=== PATIENT | male | born 1960 | race Caucasian/White ===

== ENCOUNTER 2023-12-23 08:38 | Emergency (ER) | payer OTHER, SELFPAY ==
--- NOTE | ~2023-12-23 | CT_ITS ---
CT abdomen pelvis w con Ordering provider: Kathleen Dunham MD History: 63 years Male with . LLQ pain . Comparison: None. Technique: CT abdomen and pelvis with IV and without oral contrast. Automated exposure control and it erative reconstruction technique were employed. The dose-length product was 676.01 mGy-cm. 100 mL Omn ipaque 350 was given IV. Findings: VISUALIZED LOWER CHEST: Dependent atelectatic changes. UPPER ABDOMINAL ORGANS: Liver: A hemangioma is seen in segment #6. Follow-up advised Gallbladder: Normal. Spleen: Normal. Stomach/duodenum: Normal. Pancreas: Normal. Slightly prominent pancreatic duct. Follow-up advised. Adrenals: Tiny adenoma is seen in the body of the left adrenal. No follow-up advised unless clinicall y warranted. Kidneys: Large stone seen in the right renal pelvis measuring 2 cm. Minimal fat stranding seen around the renal pelvis. Stone in the left upper ureter measuring 1 cm. Stone in the left kidney lower pole a cyst seen measuring 1 cm. Tiny stone in the right kidney lower pole. Bilateral hydronephrotic edgar ges are seen. PELVIC ORGANS: The bladder shows thickened wall with underfilling of the bladder. BOWEL AND MESENTERY: Colon: No evidence of diverticulitis. Normal appendix. Small Bowel: Normal. No obstruction. Peritoneum/mesentery: No free air or free fluid. No mesenteric lymphadenopathy. Small lymph nodes are seen in the right lower quadrant measuring 0.8 cm and 1.1 cm. RETROPERITONEUM: Mild atheromatous disease of the abdominal aorta. No retroperitoneal lymphadenopat hy. MUSCULOSKELETAL: Superficial soft tissues: Bilateral fat containing inguinal hernias larger on the left side. Otherwis e, The superficial soft tissues are normal. Bones: Age appropriate degenerative changes of the spine. IMPRESSION: 1. Bilateral kidney stones with bilateral hydronephrotic changes. 2. Highly suggestive meningioma in the liver segment 6. Follow-up advised. 3. Bilateral fat containing inguinal hernias. Reviewed, dictated and finalized at location A.
[2023-12-23 08:47] VITALS: BP 203/107; PULSE 68; RESP 18; TEMP 36.3; O2SAT 97
[2023-12-23 09:08] LABS: Basophils Percent Auto 0.4 % (0.2-1.2); Eosinophils Absolute Auto 0.3 K/mm3 (0-0.3); Eosinophils Percent Auto 2.6 % (0-4.4); Hematocrit 56.1 % (42.0-52.0); Hemoglobin 18.2 g/dL (14.0-18.0); Immature Granulocyte Absolute 0.03 K/mm3 (0.00-0.031); Immature Granulocyte Percent A 0.3 % (0-0.5); Lymphocytes Absolute Auto 1.66 K/mm3 (0.9-3.2); Lymphocytes Percent Auto 17.3 % (18.3-44.2); Mean Corpuscular HGB Conc 32.4 g/dl (32-36); Mean Corpuscular Hemoglobin 26.5 pg (26-34); Mean Corpuscular Volume 81.7 fl (80-100); Mean Platelet Volume 9.9 fl (7.4-10.4); Monocytes Absolute Auto 0.9 K/mm3 (0.1-0.6); Monocytes Percent Auto 9.5 % (2.6-8.5); Neutrophils Absolute Auto 6.7 K/mm3 (1.3-6.7); Neutrophils Percent Auto 69.9 % (45.5-73.1); Platelet Count Result 291 k/mm3 (150-375); Red Blood Count 6.87 M/mm3 (4.6-6.20); Red Cell Distribution Width 15.2 % (11.5-14.5); White Blood Count 9.6 K/mm3 (4.5-10.0)
--- NOTE | 2023-12-23 09:10 | ED.ABDPAIN ---
HPI - Abdominal Pain General Chief Complaint: Abdominal Pain Stated Complaint: abd pain Time Seen by Provider: 12/23/23 08:45 History of Present Illness HPI narrative: Patient states over the last 1-2 days he has had some pain to his left lower abdomen, went to urgent care who sent him to the ER to rule out diverticulitis. He has no nausea or vomiting, fevers or chills. Related Data Allergies Allergy/AdvReac Type Severity Reaction Status Date / Time Penicillins Allergy Unknown Unknown Verified 12/23/23 08:40 Review of Systems Review of Systems: All systems reviewed & are unremarkable except as noted in HPI and below Exam Narrative: EXAMINATION OF ORGAN SYSTEMS/BODY AREAS: Constitutional: Vital signs per nursing GENERAL:[No acute distress, non-toxic appearing.] HEAD: Normal with no signs of head trauma. EYES: EOMI, conjunctiva normal ENT: Hearing grossly intact LUNGS: Nonlabored breathing. HEART: [Regular rate and rhythm] ABD: [Soft], [nontender to palpation] EXT: Normal range of motion SKIN: [No rashes or lesions.] NEURO: [Alert and oriented x 3. No gross focal sensory or strength deficits.] PSYCH: Normal affect Course Vital Signs Vital signs: Vital Signs Temperature 97.4 F L 12/23/23 08:47 Pulse Rate 68 12/23/23 08:47 Respiratory Rate 18 12/23/23 08:47 Blood Pressure 203/107 H 12/23/23 08:47 Pulse Oximetry 97 12/23/23 08:47 Oxygen Delivery Room Air 12/23/23 08:47 Temperature 97.4 F L 12/23/23 08:47 Pulse Rate 63 12/23/23 10:50 Respiratory Rate 17 12/23/23 10:50 Blood Pressure 189/110 H 12/23/23 10:50 Pulse Oximetry 97 12/23/23 10:50 Oxygen Delivery Room Air 12/23/23 08:47 MDM - Abdominal Pain MDM Narrative Medical decision making narrative: ED COURSE AND MEDICAL DECISION MAKIN-year-old male presenting to the emergency department for acute left abdominal/flank pain, symptoms are concerning for likely renal colic, also considerd diverticulitis. Urinalysis is ordered. CT scan of the abdomen/pelvis is ordered. Labs are remarkable for: Her UA with large RBCs, WBCs, elevated creatinine. CT scan of the abdomen/pelvis is reviewed by myself and interpreted by radiology: Bilateral kidney stones with signs of hydronephrosis, and hemangioma. On reevaluation, the patient resting comfortably. No complaints currently I did discuss findings of CT with patient including diagnosis of kidney stones, hemangioma, and likely UTI, for which I will be starting him on antibiotics here. Patient agreeable to this plan with return precautions. Patient is strongly advised to return to the emergency department for any increasing pain not improving with medications, persistent nausea vomiting, fevers or chills or for any other concerns. Patient is comfortable with this plan and was discharged in fair condition. He has follow-up with his primary care doctor in the next 2 weeks, I have let him know that he needs to try to keep hydrated and will need repeat kidney labs to make sure that they have improved. Follow-up to Urology also provided. Lab Data 12/23/23 08:55 12/23/23 08:55 Labs: Lab Results 12/23/23 12/23/23 Range/Units 08:55 09:29 WBC 9.6 (4.5-10.0) K/mm3 RBC 6.87 H (4.6-6.20) M/mm3 Hgb 18.2 H (14.0-18.0) g/dL Hct 56.1 H (42.0-52.0) % MCV 81.7 (80-100) fl MCH 26.5 (26-34) pg MCHC 32.4 (32-36) g/dl RDW 15.2 H (11.5-14.5) % Plt Count 291 (150-375) k/mm3 MPV 9.9 (7.4-10.4) fl Immature Gran % (Auto) 0.3 (0-0.5) % Neut % (Auto) 69.9 (45.5-73.1) % Lymph % (Auto) 17.3 L (18.3-44.2) % Sullivan % (Auto) 9.5 H (2.6-8.5) % Eos % (Auto) 2.6 (0-4.4) % Baso % (Auto) 0.4 (0.2-1.2) % Lymph # (Auto) 1.66 (0.9-3.2) K/mm3 Sullivan # (Auto) 0.9 H (0.1-0.6) K/mm3 Eos # (Auto) 0.3 (0-0.3) K/mm3 Baso # (Auto) 0.0 (0.0-0.1) K/mm3 Abs Immat Gran (auto) 0.03 (0.00-0.031) K/mm3 Abs
[2023-12-23 09:16] LABS: Alanine Aminotransferase 17 U/L (6-50); Albumin Level 4.2 g/dL (3.5-5.1); Alkaline Phosphatase 75 U/L (38-126); Anion Gap 7 mmol/L (4-12); Aspartate Amino Transferase 19 U/L (17-59); Bilirubin,Total 0.8 mg/dL (0.2-1.3); Blood Urea Nitrogen 21 mg/dL (9-20); Calcium 9.9 mg/dL (8.4-10.2); Carbon Dioxide 31 mmol/L (22-30); Chloride 101 mmol/L (98-107); Estimated CRCL calculation 45 ml/min; Estimated Glomerular Filt Rate 41; Glucose 88 mg/dL (65-110); Lipase 229 U/L (23-300); Potassium 4.1 mmol/L (3.4-5.0); Sodium 139 mmol/L (137-145)
[2023-12-23 09:41] LABS: Add Urine Microscopic? YES; Appearance Urine Cloudy (Clear); Bacteria Urine None Seen /hpf; Bilirubin Urine Negative (Negative); Blood Urine 2+ (Negative); Color Urine Yellow (Yellow); Glucose Urine UA Negative (Negative); Ketones Urine Negative (Negative); Leukocyte Esterase Ur 2+ LEU/UL (Negative); Nitrate Urine Negative (Negative); Protein Urine 2+ mg/dL (Negative); RBC Urine 51-100 /hpf (0-2); Specific Grav Ur 1.015 (1.001-1.035); Squamous Epithelial Cell Urine None Seen /hpf (Few); Urobilinogen Urine 0.2 mg/dL (<2.0); WBC Urine 51-100 /hpf (0-3)
[2023-12-23] MEDS: cefTRIAXone 2 GM/NS 100 ML 2 GM/100 ML BAG IVPB (10:46)
[2023-12-23] MEDS: LACTATED RINGERS 1,000 ML 999 ML IV CONT (10:47)
[2023-12-23 10:50] VITALS: BP 189/110; PULSE 63; RESP 17; O2SAT 97
[2023-12-23 11:45] VITALS: BP 193/103; PULSE 69; RESP 16; O2SAT 98
== END 2023-12-23 11:45 | disposition home or self-care (01) ==
PROVIDERS: Emergency Provider Emergency Medicine; PCP Internal Medicine
DX: N17.9 Acute kidney failure, unspecified (principal); N20.0 Calculus of kidney; K40.20 Bilateral inguinal hernia, without obstruction or gangrene, not specified as recurrent; R93.2 Abnormal findings on diagnostic imaging of liver and biliary tract
CPT/HCPCS: 36415; 74177; 80053; 81001; 83690; 85025; 87086; 96365; 99284; J0696; J7120; Q9967

== ENCOUNTER 2024-01-12 09:25 | Outpatient (CLI) | payer OTHER, SELFPAY ==
[2024-01-12 19:12] LABS: Basophils Absolute Auto 0.1 K/mm3 (0.0-0.1); Basophils Percent Auto 0.6 % (0.2-1.2); Eosinophils Absolute Auto 0.2 K/mm3 (0-0.3); Hematocrit 54.7 % (42.0-52.0); Hemoglobin 17.3 g/dL (14.0-18.0); Immature Granulocyte Absolute 0.02 K/mm3 (0.00-0.031); Immature Granulocyte Percent A 0.2 % (0-0.5); Lymphocytes Absolute Auto 1.71 K/mm3 (0.9-3.2); Lymphocytes Percent Auto 19.1 % (18.3-44.2); Mean Corpuscular HGB Conc 31.6 g/dl (32-36); Mean Corpuscular Hemoglobin 26.2 pg (26-34); Mean Corpuscular Volume 82.9 fl (80-100); Mean Platelet Volume 9.9 fl (7.4-10.4); Monocytes Absolute Auto 0.8 K/mm3 (0.1-0.6); Monocytes Percent Auto 8.4 % (2.6-8.5); Neutrophils Absolute Auto 6.2 K/mm3 (1.3-6.7); Neutrophils Percent Auto 69.7 % (45.5-73.1); Platelet Count Result 316 k/mm3 (150-375); Red Cell Distribution Width 15.2 % (11.5-14.5); White Blood Count 8.9 K/mm3 (4.5-10.0)
[2024-01-12 19:27] LABS: Alanine Aminotransferase 22 U/L (6-50); Albumin Level 4.1 g/dL (3.5-5.1); Alkaline Phosphatase 68 U/L (38-126); Anion Gap 8 mmol/L (4-12); Aspartate Amino Transferase 37 U/L (17-59); Bilirubin,Total 0.6 mg/dL (0.2-1.3); Blood Urea Nitrogen 22 mg/dL (9-20); Calcium 8.9 mg/dL (8.4-10.2); Carbon Dioxide 29 mmol/L (22-30); Chloride 100 mmol/L (98-107); Cholesterol 218 mg/dL (0-200); Estimated Glomerular Filt Rate 39; Glucose 68 mg/dL (65-110); HDL Direct 30 mg/dL; Potassium 4.6 mmol/L (3.4-5.0); Sodium 137 mmol/L (137-145); Triglycerides 113 mg/dL (<150)
[2024-01-12 19:38] LABS: LDL Cholesterol Direct 161 mg/dL
[2024-01-12 19:56] LABS: Prostate Specific Antigen 1.5 ng/mL (< OR = 4.0)
== END 2024-01-12 09:26 | disposition home or self-care (01) ==
LOC: ANHGOSHLAB 09:26
PROVIDERS: PCP Internal Medicine; Visit Provider Clinical Nurse Specialist
DX: Z13.228 Encounter for screening for other metabolic disorders (principal); Z13.220 Encounter for screening for lipoid disorders; Z12.5 Encounter for screening for malignant neoplasm of prostate
CPT/HCPCS: 36415; 80053; 80061; 84153; 84443; 85025; G0103

== ENCOUNTER 2024-01-12 09:44 | Outpatient (CLI) | payer OTHER, SELFPAY ==
--- NOTE | ~2024-01-12 | XR_ITS ---
XR abdomen/kub 1V Ordering provider: BARRY Patton History: . N20.0 - Calculus of kidney . Comparison: None. FINDINGS: BOWEL: Nonobstructive bowel gas pattern. ORGANOMEGALY: None. SIGNIFICANT PATHOLOGIC CALCIFICATIONS: Bilateral kidney stones larger on the right side. Stone in the left renal pelvis and upper ureter. OTHER: No free air is seen under the diaphragm. IMPRESSION: NO ACUTE ABDOMINAL FINDINGS. Bilateral kidney stones. Stone in the left upper ureter or renal pelvis. Reviewed, dictated and finalized at location A. RINARY RADIOLOGIST
== END 2024-01-12 09:45 | disposition home or self-care (01) ==
PROVIDERS: PCP Internal Medicine; Visit Provider Clinical Nurse Specialist
DX: N20.0 Calculus of kidney (principal)
CPT/HCPCS: 74018

== ENCOUNTER 2024-01-15 12:46 | Outpatient (CLI) | payer OTHER, SELFPAY ==
--- NOTE | ~2024-01-15 | US_ITS ---
EXAMINATION: US renal BI, US retroperitoneal duplex ltd, US right upper quadrant DATE: 01/15/2024 13:27 INDICATION: Nephrolithiasis and abnormal result of kidney function studies. Abnormal findings on othe r diagnostic imaging with suspected hepatic hemangioma. TECHNIQUE: 1. Multiple ultrasound grayscale and color Doppler images of the right upper quadrant of the abdomen were obtained. 2. Multiple grayscale and color Doppler images of the kidneys were obtained. 3. Multiple grayscale and pulsed Doppler images of the aorta and renal arteries were obtained. COMPARISON: None. FINDINGS: Kidneys: The right kidney measures 10.4 x 5.6 x 5.9 cm. The left kidney measures 1.9 x 5.4 x 6.3 cm. The kidne ys demonstrate normal echogenicity. There is mild bilateral hydronephrosis. There is an echogenic 2 c m stone at the right renal pelvis with posterior twinkle artifact. A smaller stone at the inferior ri ght kidney seen on prior CT is not visualized on the provided images. There is an 8 mm echogenic and shadowing stone at a lower pole calyx of the left kidney. The stone at the left ureteropelvic junctio n seen on prior CT is not identified on the provided images. There is no hydronephrosis in either kid dee. No stones identified. The bladder is normal with ureteral jets visualized on color Doppler. Renal arteries/vascular: The aorta peak systolic velocity is 88 cm/s. The right renal artery peak systolic velocity is 83 cm/s in the proximal segment, 87 cm/s in the mid segment, and 87 cm/s in the distal segment. The left josefina al artery peak systolic velocity is 99 cm/s in the proximal segment, 60 cm/s in the mid segment, and 51 cm/s in the distal segment. Right upper quadrant: The region of the pancreas is obscured by shadowing bowel gas. Liver has normal echogenicity and cont our, with a smooth surface. There is a punctate echogenic calcification at the periphery of a 2.8 x 2 .3 x 1.5 cm region of subtly increased echogenicity at the periphery of the inferior right hepatic lo be which appears to correspond to the hyperenhancing lesion on prior CT which is nonspecific by ultra sound of likely a hemangioma. There is a second subtle 1.2 x 1.1 x 1.1 cm hyperechoic region along th e cephalad aspect the gallbladder fossa which is without correlate on the prior CT with location and appearance most suggestive of focal fat. No intrahepatic biliary duct dilation suspected. Portal veno us flow was seen in the hepatopetal, normal direction and has normal Doppler waveform. 3 mm echogenic and nonshadowing likely gallbladder polyp along the wall of the otherwise normal appearing nondisten ded gallbladder. No evident shadowing cholelithiasis. Common bile duct measures 3 mm diameter which i s normal. Sonographic Guerra sign was reported as negative by the production proofreader. IMPRESSION: 1. Nephrolithiasis with persistent mild bilateral hydronephrosis. 2. No Doppler evidence of renal artery stenosis. 3. A couple indeterminate slightly hyperechoic hepatic lesions one measuring 2.8 cm which corresponds to the hyperenhancing lesion in the right hepatic lobe on prior CT most likely a hemangioma at the s econd measuring 1.2 cm along the gallbladder fossa without correlate on prior CT most likely focal he patic steatosis. Would consider further evaluation with pre and postcontrast MRI for more definitive determination. 4. Likely benign 3 mm gallbladder polyp. Reviewed, dictated and finalized at location B. OUS WALLBOARD INSPECTOR IMPRESSION: 1. Nephrolithiasis with persistent mild bilateral hydronephrosis. 2. No Doppler evidence of renal artery stenosis. 3. A couple indeterminate slightly hyperechoic hepatic lesions one measuring 2. 8 cm which corresponds to the hyperenhancing lesion in the right hepatic lobe o n prior CT most likely a hemangioma at the second measuring 1.2 cm along the ga llbladder fossa without correlate on prior CT most likely focal hepatic steatos is. Would consider further evaluation with pre and postcontrast MRI for more de finitive determination. 4. Likely benign 3 mm gallbladder polyp. IMPRESSION: 1. Nephrolithiasis with persistent mild bilateral hydronephrosis. 2. No Doppler evidence of renal artery stenosis. 3. A couple indeterminate slightly hyperechoic hepatic lesions one measuring 2. 8 cm which corresponds to the hyperenhancing lesion in the right hepatic lobe o n prior CT most likely a hemangioma at the second measuring 1.2 cm along the ga llbladder fossa without correlate on prior CT most likely focal hepatic steatos is. Would consider further evaluation with pre and postcontrast MRI for more de finitive determination. 4. Likely benign 3 mm gallbladder polyp.
== END 2024-01-15 12:47 | disposition home or self-care (01) ==
LOC: GOSHIMG 12:47
PROVIDERS: PCP Internal Medicine; Visit Provider Clinical Nurse Specialist
DX: K76.9 Liver disease, unspecified (principal); R93.89 Abnormal findings on diagnostic imaging of other specified body structures; R94.4 Abnormal results of kidney function studies
CPT/HCPCS: 76705; 76775; 93976

== ENCOUNTER 2024-01-15 13:52 | Outpatient (CLI) | payer OTHER, SELFPAY ==
[2024-01-15 19:27] LABS: Basophils Absolute Auto 0.1 K/mm3 (0.0-0.1); Basophils Percent Auto 0.6 % (0.2-1.2); Eosinophils Absolute Auto 0.2 K/mm3 (0-0.3); Eosinophils Percent Auto 2.2 % (0-4.4); Hematocrit 54.6 % (42.0-52.0); Hemoglobin 17.6 g/dL (14.0-18.0); Immature Granulocyte Absolute 0.05 K/mm3 (0.00-0.031); Immature Granulocyte Percent A 0.5 % (0-0.5); Lymphocytes Absolute Auto 2.27 K/mm3 (0.9-3.2); Lymphocytes Percent Auto 23.5 % (18.3-44.2); Mean Corpuscular HGB Conc 32.2 g/dl (32-36); Mean Corpuscular Hemoglobin 26.2 pg (26-34); Mean Corpuscular Volume 81.1 fl (80-100); Mean Platelet Volume 9.9 fl (7.4-10.4); Monocytes Absolute Auto 0.9 K/mm3 (0.1-0.6); Monocytes Percent Auto 9.1 % (2.6-8.5); Neutrophils Absolute Auto 6.2 K/mm3 (1.3-6.7); Neutrophils Percent Auto 64.1 % (45.5-73.1); Platelet Count Result 336 k/mm3 (150-375); Red Blood Count 6.73 M/mm3 (4.6-6.20); Red Cell Distribution Width 14.8 % (11.5-14.5); White Blood Count 9.7 K/mm3 (4.5-10.0)
[2024-01-15 20:19] LABS: Alanine Aminotransferase 23 U/L (6-50); Albumin Level 4.5 g/dL (3.5-5.1); Alkaline Phosphatase 77 U/L (38-126); Anion Gap 10 mmol/L (4-12); Aspartate Amino Transferase 32 U/L (17-59); Bilirubin,Total 0.6 mg/dL (0.2-1.3); Blood Urea Nitrogen 29 mg/dL (9-20); Calcium 9.5 mg/dL (8.4-10.2); Carbon Dioxide 28 mmol/L (22-30); Chloride 96 mmol/L (98-107); Cholesterol 242 mg/dL (0-200); Estimated Glomerular Filt Rate 39; Glucose 77 mg/dL (65-110); HDL Direct 31 mg/dL; Sodium 134 mmol/L (137-145); Triglycerides 145 mg/dL (<150)
[2024-01-15 20:31] LABS: LDL Cholesterol Direct 184 mg/dL
[2024-01-15 20:47] LABS: Prostate Specific Antigen 1.4 ng/mL (< OR = 4.0)
== END 2024-01-15 13:53 | disposition home or self-care (01) ==
LOC: ANHGOSHLAB 13:54
PROVIDERS: PCP Internal Medicine; Visit Provider Clinical Nurse Specialist
DX: Z12.5 Encounter for screening for malignant neoplasm of prostate (principal); Z13.228 Encounter for screening for other metabolic disorders; R94.4 Abnormal results of kidney function studies; Z13.220 Encounter for screening for lipoid disorders
CPT/HCPCS: 36415; 80053; 80061; 84153; 84443; 85025; G0103

== ENCOUNTER 2024-01-19 08:50 | Outpatient (CLI) | payer OTHER, SELFPAY ==
[2024-01-19 20:00] LABS: Basophils Absolute Auto 0.1 K/mm3 (0.0-0.1); Basophils Percent Auto 0.5 % (0.2-1.2); Eosinophils Absolute Auto 0.1 K/mm3 (0-0.3); Eosinophils Percent Auto 1.5 % (0-4.4); Hematocrit 58.3 % (42.0-52.0); Immature Granulocyte Absolute 0.02 K/mm3 (0.00-0.031); Immature Granulocyte Percent A 0.2 % (0-0.5); Lymphocytes Absolute Auto 1.67 K/mm3 (0.9-3.2); Lymphocytes Percent Auto 18.2 % (18.3-44.2); Mean Corpuscular HGB Conc 32.6 g/dl (32-36); Mean Corpuscular Hemoglobin 26.5 pg (26-34); Mean Corpuscular Volume 81.4 fl (80-100); Mean Platelet Volume 9.7 fl (7.4-10.4); Monocytes Absolute Auto 0.8 K/mm3 (0.1-0.6); Monocytes Percent Auto 8.9 % (2.6-8.5); Neutrophils Absolute Auto 6.5 K/mm3 (1.3-6.7); Neutrophils Percent Auto 70.7 % (45.5-73.1); Platelet Count Result 308 k/mm3 (150-375); Red Blood Count 7.16 M/mm3 (4.6-6.20); Red Cell Distribution Width 15.6 % (11.5-14.5); White Blood Count 9.2 K/mm3 (4.5-10.0)
[2024-01-19 20:30] LABS: Add Urine Microscopic? YES; Appearance Urine Cloudy (Clear); Bacteria Urine None Seen /hpf; Bilirubin Urine Negative (Negative); Blood Urine 2+ (Negative); Color Urine Yellow (Yellow); Glucose Urine UA Negative (Negative); Hyaline Casts Urine Present /lpf; Ketones Urine Negative (Negative); Leukocyte Esterase Ur 2+ LEU/UL (Negative); Nitrate Urine Negative (Negative); Protein Urine 2+ mg/dL (Negative); Specific Grav Ur 1.019 (1.001-1.035); Squamous Epithelial Cell Urine None Seen /hpf (Few); Urobilinogen Urine 0.2 mg/dL (<2.0); WBC Urine 21-50 /hpf (0-3)
[2024-01-19 20:40] LABS: Anion Gap 10 mmol/L (4-12); Blood Urea Nitrogen 25 mg/dL (9-20); Calcium 9.9 mg/dL (8.4-10.2); Carbon Dioxide 31 mmol/L (22-30); Chloride 97 mmol/L (98-107); Erythrocyte Sedimentation Rate 1 mm/hr (0-20); Estimated Glomerular Filt Rate 41; Glucose 70 mg/dL (65-110); Potassium 4.4 mmol/L (3.4-5.0); Sodium 138 mmol/L (137-145)
[2024-01-19 21:33] LABS: Creatinine Urine 217.2 mg/dL
[2024-01-19 21:59] LABS: MALB Creatinine Ratio 233.7 mg/g (0-30); Microalbumin Urine Random 507.5 mg/L (0-16.7)
[2024-01-19 23:32] LABS: Hepatitis B Surface Antigen Negative (Negative)
[2024-01-19 23:49] LABS: Hepatitis C Virus Antibody Negative (Negative)
[2024-01-20 09:58] LABS: Protein, Total 7.6 g/dL (6.1-8.1)
[2024-01-20 14:42] LABS: Creatinine, Random Urine 209 mg/dL (20-320); Total Prot/Creat ratio mg/mg 0.512 (0.025-0.148); Total Protein/Creatinine Ratio 512 mg/g creat (25-148)
[2024-01-20 15:38] LABS: Albumin 4.6 g/dL (3.8-4.8); Alpha 1 Globulin 0.4 g/dL (0.2-0.3); Alpha 2 Globulin 0.7 g/dL (0.5-0.9); Beta 1 Globulin 0.4 g/dL (0.4-0.6)
== END 2024-01-19 08:51 | disposition home or self-care (01) ==
LOC: ANHGOSHLAB 08:52
PROVIDERS: PCP Internal Medicine; Visit Provider Internal Medicine
DX: N20.0 Calculus of kidney (principal); N17.9 Acute kidney failure, unspecified; I10 Essential (primary) hypertension
CPT/HCPCS: 36415; 80048; 81001; 82043; 82570; 84155; 84156; 84165; 84166; 85025; 85652; 86038; 86039; 86803; 87086; 87340

== ENCOUNTER 2024-02-02 09:10 | Outpatient (CLI) | payer OTHER, SELFPAY ==
--- NOTE | ~2024-02-02 | XR_ITS ---
XR abdomen/kub 1V 02/02/2024 09:35 Indication: Renal stones Procedure: KUB Comparison: CT dated 12/23/2023 and KUB dated 01/12/2024 Findings: There are bilateral renal stones, largest overlying the expected location the right renal p tuan measuring up to 2 cm. There is a stone in the expected location of the left UPJ measuring 1 cm craniocaudal. Bowel gas pattern nonobstructive. No acute osseous abnormality. Mild levocurvature of t he thoracolumbar spine. Mild lower thoracic and lumbar spondylosis. Impression: 1: Stable position to bilateral nephrolithiasis allowing for differences of technique. Reviewed, dictated and finalized at location B. ROOM ATTENDANT Impression: 1: Stable position to bilateral nephrolithiasis allowing for differences of cyndie hnique.
== END 2024-02-02 09:11 | disposition home or self-care (01) ==
PROVIDERS: PCP Internal Medicine; Visit Provider Urology
DX: N20.0 Calculus of kidney (principal)
CPT/HCPCS: 74018

== ENCOUNTER 2024-02-03 02:22 | Day surgery (SDC) | payer OTHER, SELFPAY ==
[2024-02-02 11:23] VITALS: BMI 24.3
--- NOTE | 2024-02-02 11:24 | PC.NURSE ---
Report to the Outpatient Waiting Room, entrance under the green pavilion located off [facility], at time _0915_ on date _[id number]_. Planned Procedure Time: _1115_.? Time changes happen often and if your time is changed the preop area will call you the afternoon before. - You and your visitor will be asked to self-screen and do not enter if you have any COVID symptoms. Please call surgeon if you need to reschedule. - A mask is optional within the hospital at this time. Patients may have clear liquids (water, carbonated beverages, clear teas, apple juice) until 3 hours prior to surgery with a maximum of 20 ounces. - No food from midnight until time of surgery and no smoking. This includes no chewing gum, candy or mints. Take only the following medications with a SIP of water on the morning of surgery: __Amlodipine DO NOT STOP ANY OF YOUR OTHER PRESCRIPTION MEDICATIONS PRIOR TO SURGERY EXCEPT THE FOLLOWING Medications to discontinue per physician ___None Please no make-up, nail nauruan, hairspray, perfume, deodorant, or body powder the day of surgery.? No jewelry (including any body piercings) or valuables the day of surgery, leave them at home.? Please take a shower or bath the night before, or the morning of, surgery with an antibacterial soap.? Wear comfortable, loose fitting clothing.? - Jewelry must be removed prior to entering the operating room.? Rings and piercings that are not removed may be cut off. - The hospital will not accept responsibility for valuables.? - Please leave all valuables, including medications, at home the day of surgery. If you are going home after surgery, a licensed entry level truck driver must drive you home.? - NO public transportation without another adult if you receive anesthesia. - We recommend that an adult stay with you for 24 hours following discharge. - We also recommend that you do not drive, make important decision, drink alcoholic beverages, or take any drugs that were not prescribed by your health care provider for at least 24 hours after your discharge time. Follow any additional instructions given to you from your surgeon. Telephone instructions given to __Morgan__and asked if any additional questions and then verbalized understanding. Patient advised to call surgeon office or pre surgery nurse liaison [phone] if any additional questions.
[2024-02-03] VITALS (7 sets, daily range): BP systolic 122–153; BP diastolic 71–93; PULSE 71–90; RESP 13–20; TEMP 36.1–36.3; O2SAT 96–100; BMI 25.0
--- NOTE | ~2024-02-03 | XR_ITS ---
EXAMINATION: XR retrograde pyelo w/stent BI DATE: 02/03/2024 11:59 INDICATION: Calcium kidney stone. TECHNIQUE: 6 intraoperative fluoroscopic views of the abdomen and pelvis were obtained. I was not pre sent. Fluoroscopy exposure time was 49 seconds. COMPARISON: CT abdomen and pelvis 02/02/2024 FINDINGS: The corrosion control specialist images demonstrate a stone in right renal pelvis, a stone in left kidney, and a s tone in proximal left ureter. Bilateral retrograde pyelograms demonstrate mild bilateral hydronephros is. The final images demonstrate bilateral internal ureteral stents in expected positions. IMPRESSION: 1. Stones in the right renal pelvis, left kidney, and proximal left ureter. 2. Mild bilateral hydronephrosis. 3. Bilateral internal ureteral stents in expected positions. Reviewed, dictated and finalized at location A. ENGINEERING SUPERINTENDENT
--- NOTE | 2024-02-03 09:16 | WPDHPUPDATE1 ---
History and Physical Update Update Date/Time: 02/03/24 09:16 History and Physical has been reviewed, including an updated exam of the patient. There are NO changes in the patient's condition. Risks, benefits, and alternatives have been discussed and questions answered. Patient agrees to proceed with procedure.
--- NOTE | 2024-02-03 10:27 | WPDANESEPPF ---
Anes - Initial Pre Proc Eval Procedure: Operation Date: 02/03/24 11:15 Proposed Procedures p Cystoscopy, Bilateral Retrograde Pyelogram, Bilateral Stent Placement, Possible Left Ureteroscopy, Possible Left Stone Extraction, Possible Holmium Laser - Tashi Castro MD Date/Time: 02/03/24 10:27 Surgeon: Tasih Castro MD Pre Op Diagnosis: kidney stones Patient Data Age: 63 Gender: M Height: 1.85 m Weight: 86.1 kg Last Vital Signs Temp 36.3 C L 02/03/24 09:20 Pulse 71 02/03/24 09:20 Resp 18 02/03/24 09:20 BP 138/72 02/03/24 09:20 Pulse Ox 100 02/03/24 09:20 O2 Del Method Room Air 02/03/24 09:20 Allergies Allergy/AdvReac Type Severity Reaction Status Date / Time Penicillins Allergy Unknown Unknown Verified 02/03/24 10:22 Home Medications Medication Instructions Recorded Confirmed Type tamsulosin 0.4 mg capsule (Flomax) 0.4 mg PO QHS #30 caps 01/12/24 02/02/24 Rx clonidine HCl 0.1 mg tablet 0.1 mg PO ONCE PRN hypertensive 01/13/24 02/02/24 Rx emergency #20 tabs amlodipine 10 mg tablet 10 mg PO DAILY #90 tabs 01/26/24 02/03/24 Rx hydrochlorothiazide 25 mg tablet 25 mg PO DAILY #90 tabs 01/26/24 02/02/24 Rx Patient hx anesthesia problems: none Family hx anesthesia problems: none Results Review: All pre-operative results and documents have been reviewed as part of the pre-operative evaluation. FOR[facility]LY [facility] Past Medical History Medical History Kidney stones Family History Family History Father Lung cancer Sibling Colon cancer Grandparent Cerebrovascular accident Social History Social History (Updated 01/19/24 @ 08:08 by Beatrice Mcintosh CMA) Social History: caffeine use- daily Years smoked: 40 Smoking status: Former smoker Smoking end date: 01/02/24 Alcohol intake: current Drinks per week: 6 Substance use: current Substance use type: marijuana Last use: occasionally Do You Feel Safe in your Home?: Yes Lack of Transportation: No Lack of Food: Never True Concerned About Future Housing: No Difficulty Paying Gas/Electric Bills: No Difficulty Paying for Meds: No Currently Unemployed: No Education: Master's Degree or Higher Difficulty w/ Childcare or Family Care: No Living arrangements: with family Occupation/Education: occupation Gender identity (if verbalized by the patient): Male Spiritual care concerns: No Anes - Eval Final PreProcedure Day of Procedure 02/03/24 10:27 Patient weight: normal Heart: regular rate and rhythm Lungs: clear to auscultation and normal air movement Airway: Mallampati scale class II Neurological: alert and oriented Last oral intake: >/= 8 hours ASA classification: II Emergent: no Anesthetic plan: proceed Anesthesia type and monitoring: general LMA and standard monitoring Results Review: All pre-operative results and documents have been reviewed as part of the pre-operative evaluation. Informed Consent: The patient's anesthetic plan and its attendant risks and benefits were discussed with the patient/family/POA. Questions were solicited and answers provided to the satisfaction of the patient/family/POA.
[2024-02-03] MEDS: ceFAZolin 2 GM/D5W 50 ML 2 GM/50 ML BAG IVPB (10:54)
[2024-02-03] MEDS: LIDOCAINE HCL 2% GEL UROJET 10 ML PKG MUCOUS MEM (11:18)
--- NOTE | 2024-02-03 11:56 | P.OP_ITS ---
Procedure Note - Detailed Date of Procedure 02/03/24 Pre-op Diagnosis Bilateral renal and left ureteral calculi Post-op Diagnosis Same Procedure Performed Cystoscopy, bilateral retrogrades, left ureteroscopy with holmium laser, bilateral ureteral stent placement Surgeon Tashi Castro MD Anesthesia General Findings 1 cm x 5 mm left proximal stone, 1 cm left lower pole stone, 2 cm right renal pelvic stone Description of Procedure Patient was taken to the operative suite correctly identified. Once anesthesia was obtained was placed in dorsal lithotomy position and prepped and draped usual sterile fashion. Twenty-two Togolese scope was inserted in bladder under direct vision. He has a slight median lobe. No tumors noted. The right ureteral orifice was cannulated with a ureteral catheter and a pyelogram was performed. Contrast made its way up into the kidney. Sensor wire was placed in a 4.8 Togolese contour stent was then placed with the proximal end coiled in the renal pelvis and the distal in the bladder. Attention was then given left side. Guidewire was inserted all the way up to the kidney. The orifice was dilated with an 8/10 dilator. Ureteral access sheath was then inserted without difficulty. Mini flexible ureteral scope was placed. Proximal stone had been pushed into the kidney. Using a 200 micron fiber I lasered and dusted the stone. Pieces were too small to retrieve. The left lower pole stone was then seen. It was in the difficult calyx to get to. I was able to fragment at least 90% of the stone. Small little piece is lodged in the calices which was difficult to manipulate the scope to get to. At this point we terminated procedure. Pyelogram was then performed to confirm placement of the stent. 4.8 Togolese contour stent was placed with the proximal end in the renal pelvis and the distal in the bladder. Bladder was drained. 2% viscous lidocaine was inserted into the urethra. That little fragment is clinically insignificant at this time. We will plan on doing a another ureteroscopy on the right side using the CVAC ureteral scope given its size of 2 cm. Will plan on scheduling that in a week or 2. Will plan on removal of the left stent at that. This completes dictation. Please send a copy of op note to my office. Estimated Blood Loss 0 Drains Yes Packing No Pathology None sent Complications No immediate complications Condition Stable Disposition PACU
[2024-02-03] MEDS: LACTATED RINGERS 1,000 ML 30 ML IV CONT ×2 (12:00)
[2024-02-03] MEDS: ONDANSETRON INJ 4 MG/2 ML VIAL IV PUSH (13:00)
== END 2024-02-03 13:34 | disposition home or self-care (01) ==
PROVIDERS: PCP Internal Medicine; Visit Provider Urology
PROC: (CPT 52352; principal; 2024-02-03 11:15)
DX: N20.2 Calculus of kidney with calculus of ureter (principal); F12.90 Cannabis use, unspecified, uncomplicated; Z98.890 Other specified postprocedural states; Z87.891 Personal history of nicotine dependence; Z80.0 Family history of malignant neoplasm of digestive organs; Z80.1 Family history of malignant neoplasm of trachea, bronchus and lung; Z82.49 Family history of ischemic heart disease and other diseases of the circulatory system
CPT/HCPCS: 52356; 74420; C1758; C1769; C2617; J0690; J1100; J2371; J2405; J2704; J7120; Q9966

== ENCOUNTER 2024-02-10 13:36 | Outpatient (CLI) | payer OTHER, SELFPAY ==
--- NOTE | ~2024-02-10 | MR_ITS ---
MRI of the abdomen: Clinical indication: Liver disease. Technique: Coronal SSFSE ARC, WATER:coronal LAVA-FLEX, Coronal 2D FIESTA FatSat, Axial SSFSE BH ARC, Axial 3D DualEcho BH, Axial SSFSE-IR, Axial DWI b=500, Axial 2D FIESTA FatSat, pre and dynamic postco ntrast Axial LAVA ARC, postcontrast Coronal In and Opposed phase LAVA FLEX . Following intravenous ad ministration of 17 cc MultiHance gadolinium, T1-weighted fat-sat imaging was performed in the axial a nd coronal planes. Findings: Gallbladder unremarkable. The common bile duct is normal in course and caliber. No filling defects are seen within the CBD. No evidence of intrahepatic biliary ductal dilatation. The pancreati c duct is normal in size. There is a 2.2 cm T2 hyperintense mass in the inferior right hepatic lobe which demonstrates irregula r peripheral contrast enhancement with progressive fill in and persistent enhancement over time, most compatible with hemangioma. No other hepatic lesion identified. Spleen, pancreas, adrenals, kidneys appear normal. The aorta and the paraaortic regions appear normal . Impression: 2.2 cm inferior right hepatic lobe hemangioma. No other hepatic abnormality identified. Reviewed, dictated and finalized at location . PATIAL INFORMATION TECHNOLOGIST Impression: 2.2 cm inferior right hepatic lobe hemangioma. No other hepatic abnormality darrin ntified.
== END 2024-02-10 13:37 | disposition home or self-care (01) ==
LOC: MICIMG 13:36
PROVIDERS: PCP Internal Medicine; Visit Provider Clinical Nurse Specialist
DX: K76.9 Liver disease, unspecified (principal)
CPT/HCPCS: 74183; A9577

== ENCOUNTER 2024-02-17 01:49 | Day surgery (SDC) | payer OTHER, SELFPAY ==
[2024-02-10 08:25] VITALS: BMI 24.4
--- NOTE | 2024-02-10 08:29 | PC.NURSE ---
Report to the Outpatient Waiting Room, entrance under the green pavilion located off [facility], at time _0800_ on date _[id number]_. Planned Procedure Time: _1000_.? Time changes happen often and if your time is changed the preop area will call you the afternoon before. - You and your visitor will be asked to self-screen and do not enter if you have any COVID symptoms. Please call surgeon if you need to reschedule. - A mask is optional within the hospital at this time. Patients may have clear liquids (water, carbonated beverages, clear teas, apple juice) until 3 hours prior to surgery with a maximum of 20 ounces. - No food from midnight until time of surgery and no smoking. This includes no chewing gum, candy or mints. Take only the following medications with a SIP of water on the morning of surgery: ____Amlodipine DO NOT STOP ANY OF YOUR OTHER PRESCRIPTION MEDICATIONS PRIOR TO SURGERY EXCEPT THE FOLLOWING Medications to discontinue per physician Probiotic Date to take last ugbh___[id number]___ Please no make-up, nail icelandic, hairspray, perfume, deodorant, or body powder the day of surgery.? No jewelry (including any body piercings) or valuables the day of surgery, leave them at home.? Please take a shower or bath the night before, or the morning of, surgery with an antibacterial soap.? Wear comfortable, loose fitting clothing.? - Jewelry must be removed prior to entering the operating room.? Rings and piercings that are not removed may be cut off. - The hospital will not accept responsibility for valuables.? - Please leave all valuables, including medications, at home the day of surgery. If you are going home after surgery, a licensed delivery truck driver must drive you home.? - NO public transportation without another adult if you receive anesthesia. - We recommend that an adult stay with you for 24 hours following discharge. - We also recommend that you do not drive, make important decision, drink alcoholic beverages, or take any drugs that were not prescribed by your health care provider for at least 24 hours after your discharge time. Follow any additional instructions given to you from your surgeon. Telephone instructions given to __Morgan__and asked if any additional questions and then verbalized understanding. Patient advised to call surgeon office or pre surgery nurse liaison [phone] if any additional questions.
[2024-02-17] VITALS (9 sets, daily range): BP systolic 133–156; BP diastolic 68–83; PULSE 56–79; RESP 10–18; TEMP 36.1; O2SAT 99–100
--- NOTE | ~2024-02-17 | XR_ITS ---
EXAMINATION: XR retrograde pyelo w/stent BI DATE: 02/17/2024 11:54 INDICATION: Internal ureteral stent placement TECHNIQUE: Fluoroscopic images from a bilateral ureteral stent placement are submitted for review. 50 seconds of fluoroscopy of fluoroscopy time. FINDINGS: There is a bilateral double-J internal ureteral stent projecting in expected position, with proximal [place] loop at the level of the renal pelvis and distal loop in the pelvis within the bladder lumen. IMPRESSION: 1. Bilateral internal ureteral stent placement. Please refer to real-time procedural findings for d etails. Reviewed, dictated and finalized at location B. WINDER IMPRESSION: 1. Bilateral internal ureteral stent placement. Please refer to real-time pro cedural findings for details.
--- NOTE | ~2024-02-17 | XR_ITS ---
XR abdomen/kub 1V Ordering provider: Tashi Castro MD History: . renal stones . Comparison: None. FINDINGS: BOWEL: Nonobstructive bowel gas pattern. ORGANOMEGALY: None. SIGNIFICANT PATHOLOGIC CALCIFICATIONS: Bilateral double-J stent are noted. Bilateral kidney calcifica tions are seen suggestive of stones. OTHER: No free air is seen under the diaphragm. IMPRESSION: NO ACUTE ABDOMINAL FINDINGS. Bilateral kidney stones with bilateral double-J stents. Reviewed, dictated and finalized at location A. N RESOURCES REPRESENTATIVE
[2024-02-17] MEDS: LACTATED RINGERS 1,000 ML 30 ML IV CONT ×2 (08:30→11:45)
--- NOTE | 2024-02-17 09:05 | WPDHPUPDATE1 ---
History and Physical Update Update Date/Time: 02/17/24 09:05 History and Physical has been reviewed, including an updated exam of the patient. There are NO changes in the patient's condition. Risks, benefits, and alternatives have been discussed and questions answered. Patient agrees to proceed with procedure. Will proceed with cystoscopy, bilateral ureteroscopy with stone extraction bilateral stent exchange
--- NOTE | 2024-02-17 09:19 | P.PNAN_ITS ---
Anes - Initial Pre Proc Eval Procedure: Operation Date: 02/17/24 10:00 Proposed Procedures p Cystoscopy, Right Ureteroscopy, Right Laser Lithotripsy, Right Stone Extraction, Right Stent Exchange, Left Stent Removal - Tashi Castro MD Date/Time: 02/17/24 09:19 Surgeon: Tashi Castro MD Pre Op Diagnosis: right renal calculus Patient Data Age: 63 Gender: M Height: 1.85 m Weight: 84 kg Allergies Allergy/AdvReac Type Severity Reaction Status Date / Time Penicillins Allergy Unknown Unknown Verified 02/10/24 08:22 Home Medications ?Medication ?Instructions ?Recorded ?Confirmed ?Type tamsulosin 0.4 mg capsule (Flomax) 0.4 mg PO QHS #30 caps 01/12/24 02/10/24 Rx clonidine HCl 0.1 mg tablet 0.1 mg PO ONCE PRN hypertensive 01/13/24 02/10/24 Rx emergency #20 tabs amlodipine 10 mg tablet 10 mg PO DAILY #90 tabs 01/26/24 02/10/24 Rx oxybutynin chloride 5 mg tablet 5 mg PO BID PRN bladder spasms #30 02/03/24 02/10/24 Rx tabs tramadol 50 mg tablet 50 mg PO Q6H PRN pain #20 tabs 02/03/24 02/10/24 Rx L.acidophilus,rhamnosus-B.breve-S.thermophilus 1 tablet PO DAILY 02/10/24 02/10/24 History 3 billion cell chew tab Patient hx anesthesia problems: none Family hx anesthesia problems: none Results Review: All pre-operative results and documents have been reviewed as part of the pre- operative evaluation. [facility] Past Medical History Medical History Kidney stones Family History Family History Father Lung cancer Sibling Colon cancer Grandparent Cerebrovascular accident Social History Social History Social History: caffeine use- daily Years smoked: 40 Smoking status: Former smoker Smoking end date: 01/02/24 Alcohol intake: current Drinks per week: 6 Substance use: current Substance use type: marijuana Last use: occasionally Do You Feel Safe in your Home?: Yes Lack of Transportation: No Lack of Food: Never True Concerned About Future Housing: No Difficulty Paying Gas/Electric Bills: No Difficulty Paying for Meds: No Currently Unemployed: No Education: Master's Degree or Higher Difficulty w/ Childcare or Family Care: No Living arrangements: with family Occupation/Education: occupation Gender identity (if verbalized by the patient): Male Spiritual care concerns: No Anes - Eval Final PreProcedure Day of Procedure 02/17/24 09:19 Patient weight: normal Heart: regular rate and rhythm Lungs: decreased breath sounds Airway: Mallampati scale class II Neurological: alert and oriented Last oral intake: >/= 8 hours ASA classification: III Emergent: no Anesthetic plan: proceed Anesthesia type and monitoring: general LMA and standard monitoring Results Review: All pre-operative results and documents have been reviewed as part of the pre- operative evaluation. Informed Consent: The patient's anesthetic plan and its attendant risks and benefits were discussed with the patient/family/POA. Questions were solicited and answers provided to the satisfaction of the patient/family/POA.
[2024-02-17] MEDS: ceFAZolin 2 GM/D5W 50 ML 2 GM/50 ML BAG IVPB (09:35)
[2024-02-17] MEDS: LIDOCAINE 2% GEL UROJET 10 ML PKG MUCOUS MEM (11:37)
--- NOTE | 2024-02-17 11:44 | W.PM.PROC2 ---
Procedure Note - Detailed Date of Procedure 02/17/24 Pre-op Diagnosis Bilateral renal calculi with bilateral stents Post-op Diagnosis Same Procedure Performed Cystoscopy, bilateral retrogrades, bilateral ureteroscopy with laser using CVAC, bilateral stent exchange Surgeon Tashi Castro MD Anesthesia General Description of Procedure Patient was taken to the operative suite correctly identified. Once anesthesia was obtained he was placed in dorsal lithotomy position prepped draped usual sterile fashion 22 Bulgarian scope was inserted the bladder. The prior left stent was grasped brought out the meatus. Wire was placed through it. Mini flexible ureteroscope was inserted up to the kidney. Some stone fragments were noted in the lower pole. Using a 200 micron fiber we dusted the stones further. These then appeared to flush out. Pyelogram was then performed in a 4.8 Bulgarian contour stent was placed. Attention was then given to the right side. The right stent was grasped with another wire passed through it. A 2nd Sensor wire was placed. A ureteral access sheath was inserted. CVAC ureteroscope was placed. 2 cm stone was noted in the renal pelvis. Using a 200 micron fiber we dusted the stone. Using the continuous VAC ureteral scope we aspirated all the visible fragments. He had thus stone in the lower pole. We attempted to dust this but is very difficult to angle it into that calyx. At this point the majority of the stone burden was gone. Pyelogram was performed. 4.8 Bulgarian contour stent was placed with the proximal end coiled in the renal pelvis the bladder. 2% viscous lidocaine was inserted into the urethra patient is taken recovery stable condition. He will be discharged home and follow-up in the next 1-3 weeks at his convenience for bilateral stent removal. This completes dictation. Please send a copy of this op note to my office. Estimated Blood Loss 0 Drains Yes Packing No Pathology Yes Complications No immediate complications Condition Stable Disposition PACU
[2024-02-17] MEDS: SCOPOLAMINE 1 MG PATCH 1 PATCH TRANSDERM (11:45)
--- NOTE | 2024-02-17 13:34 | SUR.PHASEII ---
instructed on scopolamine patch; remove in 72 hours and wash hands after touching patch.
== END 2024-02-17 13:35 | disposition home or self-care (01) ==
PROVIDERS: PCP Internal Medicine; Visit Provider Urology
PROC: (CPT 52352; principal; 2024-02-17 10:00)
DX: N20.0 Calculus of kidney (principal); F12.90 Cannabis use, unspecified, uncomplicated; Z79.891 Long term (current) use of opiate analgesic; Z98.890 Other specified postprocedural states; Z87.891 Personal history of nicotine dependence; Z80.1 Family history of malignant neoplasm of trachea, bronchus and lung; Z80.0 Family history of malignant neoplasm of digestive organs; Z82.49 Family history of ischemic heart disease and other diseases of the circulatory system
CPT/HCPCS: C9761; 74018; 74420; 82365; 88300; A9270; C1747; C1758; C1769; C1894; C2617; J0690; J1100; J2250; J2270; J2405; J2704; J7120; Q9966

== ENCOUNTER 2024-03-16 14:58 | Outpatient (CLI) | payer OTHER, SELFPAY ==
[2024-03-16 19:17] LABS: Hematocrit 45.3 % (42.0-52.0); Hemoglobin 14.8 g/dL (14.0-18.0); Mean Corpuscular HGB Conc 32.7 g/dl (32-36); Mean Corpuscular Hemoglobin 26.5 pg (26-34); Mean Platelet Volume 9.8 fl (7.4-10.4); Platelet Count Result 280 k/mm3 (150-375); Red Blood Count 5.59 M/mm3 (4.6-6.20); Red Cell Distribution Width 14.2 % (11.5-14.5); White Blood Count 10.5 K/mm3 (4.5-10.0)
[2024-03-16 19:47] LABS: Albumin Level 3.9 g/dL (3.5-5.1); Anion Gap 7 mmol/L (4-12); Blood Urea Nitrogen 19 mg/dL (9-20); Calcium 9.3 mg/dL (8.4-10.2); Carbon Dioxide 32 mmol/L (22-30); Chloride 99 mmol/L (98-107); Estimated Glomerular Filt Rate 50; Glucose 127 mg/dL (65-110); Potassium 3.5 mmol/L (3.4-5.0); Sodium 138 mmol/L (137-145)
[2024-03-16 20:00] LABS: Vitamin D 25 Hydroxy 81.2 ng/mL
== END 2024-03-16 14:59 | disposition home or self-care (01) ==
LOC: ANHGOSHLAB 15:00
PROVIDERS: PCP Internal Medicine; Visit Provider Internal Medicine Nephrology
DX: N17.9 Acute kidney failure, unspecified (principal); I10 Essential (primary) hypertension; N20.0 Calculus of kidney; D58.2 Other hemoglobinopathies; R94.4 Abnormal results of kidney function studies
CPT/HCPCS: 36415; 80069; 82306; 84443; 85027

== ENCOUNTER 2024-05-03 14:35 | Outpatient (CLI) | payer OTHER, SELFPAY ==
[2024-05-03 20:33] LABS: Albumin Level 3.9 g/dL (3.5-5.1); Anion Gap 10 mmol/L (4-12); Blood Urea Nitrogen 19 mg/dL (9-20); Calcium 9.3 mg/dL (8.4-10.2); Carbon Dioxide 29 mmol/L (22-30); Chloride 101 mmol/L (98-107); Estimated Glomerular Filt Rate 58; Glucose 104 mg/dL (65-110); Phosphorus 3.4 mg/dL (2.5-4.5); Potassium 3.6 mmol/L (3.4-5.0); Sodium 140 mmol/L (137-145)
== END 2024-05-03 14:36 | disposition home or self-care (01) ==
PROVIDERS: PCP Internal Medicine; Visit Provider Internal Medicine Nephrology
DX: N17.9 Acute kidney failure, unspecified (principal)
CPT/HCPCS: 36415; 80069

== ENCOUNTER 2024-07-16 10:11 | Outpatient (CLI) | payer OTHER, SELFPAY ==
--- OUTSIDE RECORDS SUMMARY | 2024-07-16 10:15 | XMS_ITS | Continuity of Care Document ---
Author Organization [facility] Address [id number] [place] [address] [place] [address] Phone Care Team Providers Care Special Forces Warrant Officer Name Role Phone Chidi Bray DO Unavailable Unavailable Advance Directives Directive Yes / No Effective Date File Name No Information Encounters Encounter Description Practice Location Reason(s) For Visit Diagnoses Date Provider Providers Copied on Encounter [facility], [address], [place], [place], [id number], [place] tel:[phone] SEC [facility] No Information Katarina Ramesh. [address] [address] [facility], [place], [address], [place]. tel:[phone] Family History Family Member Type Diagnosis Age At Onset No Information Payers Payer name Insurance type Covered republican ID Authoriza tion(s) No Information Social History Type Description Quantity Date Captured Comments Sex Male Smoking Status No Information Chief Complaint And Reason For Visit No Information Reason For Referral Reason For Referral No Information History Of Present Illness Encounter Date Complaint History Of Prese nt Illness No Information Functional Status Date Functional Assessmen t No Information Instructions Date Instruction Additional Infor mation No Information Assessments Type Assessment Date No Information Patient Care Teams Name Effective Dates (start - stop) Status Members No Information
--- OUTSIDE RECORDS SUMMARY | 2024-07-16 10:15 | XMS_ITS | Clinical Summary ---
Author Organization [facility] [address] Address [address] [place] [phone] Care Team Providers Care [employer] Program Coordinator Name Role Phone Martin Ontiveros DO Primary Care Provider [phone]- [phone] Allergies Active Allergy Reactions Criticality Noted Date Comments Penicillins Unknown 12/23/2023 Medications No known medications Active Problems No known active problems Social History Tobacco Use Types Packs/Day Years Used Date Smoking Tobacco: Never Assessed Sex and Gender Information Value Date Recorded Sex Assigned at Not on file 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 Gender Identity Not on file Sexual Orientation Not on file Obstetrics History Last Filed Vital Signs Vital Sign Reading Time Taken Comments Blood Pressure 178/102 12/23/2023 8:12 AM CDT Pulse 63 12/23/2023 8:12 AM CDT Temperature 36.4 C (97.6 F) 12/23/2023 8:12 AM CDT Respiratory Rate 20 12/23/2023 8:12 AM CDT Oxygen Saturation 96% 12/23/2023 8:12 AM CDT Inhaled Oxygen Concentration - - Weight 90.7 kg (200 lb) 12/23/2023 8:12 AM CDT Height - - Body Mass Index - - Plan of Treatment Health Maintenance Due Date Last Done Comments Colon Cancer Screening-Colonoscopy 1960 Depression Screening 1960 Hepatitis C Screening 1960 Prostate Cancer Screening-PSA 1962 DTaP/Tdap/Td Vaccine (1 - Tdap) 1973 Hepatitis B Screening 1980 Regular Well Visit/Exam 18-64 1980 Zoster Vaccine (1 of 2) 2012 Covid-19 Vaccine ( - 2023-2 5 season) 2023 03/07/2021, 06/06/2020, 05/15/2020 Influenza Vaccine (Season Ended) 2024 01/16/2020 Pneumococcal vaccine <65 Aged Out No longer eligible based on patient's age to complete this topic Insurance [facility] [employer] [facility] [employer] Care Teams Police Academy Program Coordinator Relationship Specialty Start Date End Date Martin Ontiveros DO PCP - General Internal Medicine 12/23/23
--- OUTSIDE RECORDS SUMMARY | 2024-07-16 10:15 | XMS_ITS | Referral Summary ---
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
--- OUTSIDE RECORDS SUMMARY | 2024-07-16 10:15 | XMS_ITS | CONTINUITY OF CARE DOCUMENT ---
Author Name pedritojosuesanjeev Address Unknown Organization [facility] Address [address] [place] [address] Phone [phone] Care Team Providers Care Conciliation Court Judge Name Role Phone ZACH MONTERO MD Unavailable ZACH MONTERO MD Unavailable INSURANCE PROVIDERS Payer name Policy type / Coverage type [place] red republican ID [facility] Other [id number]
[2024-07-16 12:35] LABS: Albumin Level 4.3 g/dL (3.5-5.1); Anion Gap 9 mmol/L (4-12); Blood Urea Nitrogen 18 mg/dL (9-20); Calcium 9.6 mg/dL (8.4-10.2); Carbon Dioxide 29 mmol/L (22-30); Chloride 101 mmol/L (98-107); Estimated Glomerular Filt Rate > 60; Glucose 83 mg/dL (65-110); Phosphorus 3.3 mg/dL (2.5-4.5); Potassium 3.5 mmol/L (3.4-5.0); Sodium 139 mmol/L (137-145)
== END 2024-07-16 10:12 | disposition home or self-care (01) ==
LOC: ANHGOSHLAB 10:11
PROVIDERS: PCP Internal Medicine; Visit Provider Internal Medicine Nephrology
DX: N17.9 Acute kidney failure, unspecified (principal)
CPT/HCPCS: 36415; 80069

== ENCOUNTER 2024-08-26 14:41 | Outpatient (CLI) | payer OTHER, SELFPAY ==
[2024-08-26 18:30] LABS: Albumin Level 4.1 g/dL (3.5-5.1); Anion Gap 8 mmol/L (4-12); Blood Urea Nitrogen 16 mg/dL (9-20); Calcium 9.5 mg/dL (8.4-10.2); Carbon Dioxide 29 mmol/L (22-30); Chloride 101 mmol/L (98-107); Estimated Glomerular Filt Rate 60; Glucose 82 mg/dL (65-110); Phosphorus 3.6 mg/dL (2.5-4.5); Potassium 3.2 mmol/L (3.4-5.0); Sodium 138 mmol/L (137-145)
== END 2024-08-26 14:42 | disposition home or self-care (01) ==
LOC: ANHGOSHLAB 14:41
PROVIDERS: PCP Internal Medicine; Visit Provider Internal Medicine Nephrology
DX: N17.9 Acute kidney failure, unspecified (principal)
CPT/HCPCS: 36415; 80069

== ENCOUNTER 2025-01-21 00:27 | Day surgery (SDC) | payer OTHER, SELFPAY ==
[2025-01-13 11:04] VITALS: BMI 24.7
--- OUTSIDE RECORDS SUMMARY | 2025-01-21 00:31 | XMS_ITS ---
Author Organization Unknown ENCOUNTERS Encounter Performer Location Date Diagnosis Diagnosis Status Outpatient [facility] [address] [place] [address] [phone] [facility] Outpatient [facility] [address] [place] [address] [phone] [facility] Outpatient [facility] [address] [place] [address] [id number] [facility] Outpatient [facility] [address] [place] [address] [phone] [facility] [address] [place] [address] [phone] [facility] Outpatient [facility] [address] [place] [address] [id number] [facility] [address] [place] [address] [id number] [facility] Outpatient [facility] [address] [place] [address] [id number] [facility] Outpatient [facility] [address] [place] [address] [phone] [facility] Pre Admit [facility] [address] [place] [address] [phone] Emergency [facility] [address] [place] [address] [phone] [facility] *Note: Encounters from your own facility or health system may be excluded. Allergies, Adverse Reactions, Alerts Allergen Type Severity Identification Date Penicillins drug allergy 3 [id number] Medications Name Date Quantity Days Supplied GPI Number
[2025-01-21 11:09] VITALS: BP 128/77; PULSE 66; RESP 18; TEMP 36.3; O2SAT 98
[2025-01-21] MEDS: LACTATED RINGERS 1,000 ML 150 ML IV CONT (11:10)
--- NOTE | 2025-01-21 12:21 | WPDANESEPPF ---
Anes - Initial Pre Proc Eval Procedure: Operation Date: 01/21/25 12:30 Proposed Procedures p Screening Colonoscopy - Kaveh Harris MD Date/Time: 01/21/25 12:21 Surgeon: Kaveh Harris MD Pre Op Diagnosis: Personal history of colon polyps, unspecified Patient Data Age: 64 Gender: M Height: 1.85 m Weight: 84.5 kg Last Vital Signs Temp 97.3 F L 01/21/25 11:09 Pulse 66 01/21/25 11:09 Resp 18 01/21/25 11:09 BP 128/77 01/21/25 11:09 Pulse Ox 98 01/21/25 11:09 O2 Del Method Room Air 01/21/25 11:09 Allergies Allergy/AdvReac Type Severity Reaction Status Date / Time Penicillins Allergy Unknown Unknown Verified 01/13/25 11:02 Home Medications ?Medication ?Instructions ?Recorded ?Confirmed ?Type prasterone (DHEA) 50 mg capsule 50 mg PO DAILY 09/15/24 01/21/25 History (DHEA) testosterone cypionate 200 mg/mL 100 mg IM ONCE 09/15/24 01/13/25 History intramuscular oil amlodipine 10 mg tablet 10 mg PO DAILY #30 tabs 10/18/24 01/21/25 Rx hydrochlorothiazide 25 mg tablet 25 mg PO DAILY #30 tabs 10/18/24 01/21/25 Rx cholecalciferol (vitamin D3) 50 50 mcg PO DAILY 10/19/24 01/21/25 History mcg (2,000 unit) capsule potassium chloride 10 mEq 10 meq PO DAILY #90 caps 10/19/24 01/21/25 Rx capsule,extended release Patient hx anesthesia problems: none Family hx anesthesia problems: none Results Review: All pre-operative results and documents have been reviewed as part of the pre-operative evaluation. [facility] Past Medical History Medical History Kidney stones Family History Family History Father Lung cancer Sibling Colon cancer Grandparent Cerebrovascular accident Social History Social History Social History: caffeine use- daily Years smoked: 40 Smoking status: Current every day smoker Tobacco type: cigarettes Smoking end date: 01/02/24 Alcohol intake: current Drinks per week: 1 Substance use: never Substance use type: does not use Last use: occasionally Do You Feel Safe in your Home?: Yes Lack of Transportation: No Lack of Food: Never True Concerned About Future Housing: No Difficulty Paying Gas/Electric Bills: No Difficulty Paying for Meds: No Currently Unemployed: No Education: Master's Degree or Higher Difficulty w/ Childcare or Family Care: No Living arrangements: with family Occupation/Education: occupation Gender identity (if verbalized by the patient): Male Spiritual care concerns: No Anes - Eval Final PreProcedure Day of Procedure 01/21/25 12:21 Patient weight: normal Lungs: normal air movement Airway: Mallampati scale class II Neurological: alert and oriented Last oral intake: >/= 8 hours ASA classification: II Emergent: no Anesthetic plan: proceed Anesthesia type and monitoring: general GIVS and standard monitoring Results Review: All pre-operative results and documents have been reviewed as part of the pre-operative evaluation. HTN, smokes 3 cigs/day and did smoke this am prior to procedure. Active, can walk 1-2 fos, no cp or sob. Informed Consent: The patient's anesthetic plan and its attendant risks and benefits were discussed with the patient/family/POA. Questions were solicited and answers provided to the satisfaction of the patient/family/POA.
--- NOTE | 2025-01-21 12:38 | PM.IMHP ---
H&P: HPI History of Present Illness Date/Time: 01/21/25 12:38 Chief Complaint: History of colon polyps Narrative: The patient has a history of colonic polyps, the last colonoscopy was 3 years ago. Review of Systems Review of Systems: All systems reviewed & are unremarkable except as noted in HPI and below PMFSH Past Medical History Medical History Kidney stones Family History Family History Father Lung cancer Sibling Colon cancer Grandparent Cerebrovascular accident Social History Social History Social History: caffeine use- daily Years smoked: 40 Smoking status: Current every day smoker Tobacco type: cigarettes Smoking end date: 01/02/24 Alcohol intake: current Drinks per week: 1 Substance use: never Substance use type: does not use Last use: occasionally Do You Feel Safe in your Home?: Yes Lack of Transportation: No Lack of Food: Never True Concerned About Future Housing: No Difficulty Paying Gas/Electric Bills: No Difficulty Paying for Meds: No Currently Unemployed: No Education: Master's Degree or Higher Difficulty w/ Childcare or Family Care: No Living arrangements: with family Occupation/Education: occupation Gender identity (if verbalized by the patient): Male Spiritual care concerns: No Meds Home Medications and Allergies Home Medications ?Medication ?Instructions ?Recorded ?Confirmed ?Type prasterone (DHEA) 50 mg capsule 50 mg PO DAILY 09/15/24 01/21/25 History (DHEA) testosterone cypionate 200 mg/mL 100 mg IM ONCE 09/15/24 01/13/25 History intramuscular oil amlodipine 10 mg tablet 10 mg PO DAILY #30 tabs 10/18/24 01/21/25 Rx hydrochlorothiazide 25 mg tablet 25 mg PO DAILY #30 tabs 10/18/24 01/21/25 Rx cholecalciferol (vitamin D3) 50 50 mcg PO DAILY 10/19/24 01/21/25 History mcg (2,000 unit) capsule potassium chloride 10 mEq 10 meq PO DAILY #90 caps 10/19/24 01/21/25 Rx capsule,extended release Allergies Allergy/AdvReac Type Severity Reaction Status Date / Time Penicillins Allergy Unknown Unknown Verified 01/13/25 11:02 Vital Signs Vital Signs - 24 hr 01/21/25 11:09 Temperature 97.3 F L Pulse Rate 66 Respiratory Rate 18 Blood Pressure 128/77 Pulse Oximetry 98 Oxygen Delivery Room Air Exam Const: General: cooperative and healthy appearing Resp: Effort & Inspection: normal respiratory effort and able to speak in complete sentences Auscultation: clear to auscultation bilaterally Cardio: Rate: regular rate Rhythm: regular rhythm GI: Inspection: normal to inspection GI Palp: No No hepatosplenomegaly present Auscultation: normal bowel sounds Rectal Exam: deferred Skin: General skin exam: normal color Psych: Appearance: grossly normal Mental Status: mental status grossly normal Assessment and Plan Assessment and plan (1) History of colonic polyps: Code(s): Z86.0100 - Personal history of colon polyps, unspecified Status: Acute Assessment and Plan: The patient is deemed a good candidate for the procedure. Consent signed. Will proceed.
[2025-01-21] MEDS: SIMETHICONE ORAL SUSPENSION 20 MG/0.3 ML 30 ML BOTTLE 0.6 ML IRRIGATION (12:44)
--- NOTE | 2025-01-21 12:55 | S_PTH ---
PATIENT: Liborio Garza LOC: [facility] U#:[id number] AGE/SX: 64/M ROOM: RE01/21/[address]: Kaveh Harris MD : 1960 BED: DIS: 01/21/2025 SPEC #: [id number] RECD: 01/21/25 14:13 STATUS: SAMMIE REQ #: [id number] SHERWIN: 01/21/25 12:[address]: Kaveh Harris DEPT: [facility] Surgical RECD BY: Sunita Bey ENTERED: 01/21/25 14:13 SP TYPE: Surgical OTHR DR: Martin Ontiveros, Tissues: A - Colon Polypectomy B - Colon Polypectomy Procedures: Hematoxylin and Eosin Stain Gross and Microscopic Level 4
[2025-01-21 12:57] VITALS: BP 124/81; PULSE 63; RESP 16; O2SAT 97
[2025-01-21 13:07] VITALS: BP 123/76; PULSE 61; RESP 17; O2SAT 97
[2025-01-21 13:17] VITALS: BP 143/94; PULSE 69; RESP 15; O2SAT 99
== END 2025-01-21 13:35 | disposition home or self-care (01) ==
PROVIDERS: PCP Internal Medicine; Referring Provider Internal Medicine; Visit Provider Internal Medicine Gastroenterology
PROC: 0DJD8ZZ Inspection of Lower Intestinal Tract, Via Natural or Artificial Opening Endoscopic (ICD-10-PCS; CPT 45378; principal; 2025-01-21 12:30)
DX: Z12.11 Encounter for screening for malignant neoplasm of colon (principal); D12.2 Benign neoplasm of ascending colon; D12.3 Benign neoplasm of transverse colon; K57.30 Diverticulosis of large intestine without perforation or abscess without bleeding; K64.8 Other hemorrhoids; Z87.891 Personal history of nicotine dependence
CPT/HCPCS: 45385; 88305; J2003; J2704; J7120